=== PATIENT | female | born 1935 | race Caucasian/White ===

== ENCOUNTER 2022-07-03 19:12 | Observation (INO) | payer MEDICARE ==
[~2022-07-03] VITALS: Ht 157.5 cm; Wt 70.0 kg
[2022-07-03] VITALS (11 sets, daily range): BP systolic 130–193; BP diastolic 75–112
[2022-07-03 20:35] LABS: HEMATOCRIT 38.8 % (37.0-47.0); HEMOGLOBIN 12.9 g/dl (12.0-16.0); IMMATURE GRANULOCYTES 0.3 % (0.0-5.0); MEAN CELL VOLUME 95.8 fL CALC (80.0-100.0); MEAN CORPUSCULAR HGB 31.9 pG CALC (26.0-32.0); MEAN CORPUSCULAR HGB CONC 33.2 g/dL CAL (32.0-36.0); NEUT# 1.36 thou/uL (2.00-7.15); RED BLOOD COUNT 4.05 mill/uL (4.20-5.60); RED CELL DISTRI WIDTH 13.4 % (11.5-15.5)
[2022-07-03 20:50] LABS: ALBUMIN 3.8 g/dL (3.2-5.0); ALKALINE PHOSPHATASE 43 u/l (38-126); ANION GAP 10 (6-22 (CALC)); BILIRUBIN, TOTAL 0.7 mg/dL (0.0-1.4); BUN 10 mg/dL (8-23); BUN/CREATININE RATIO 14 (12-20 (CALC)); CARBON DIOXIDE 30 mmol/l (22-30); CHLORIDE 102 mmol/l (95-108); CREATININE 0.8 mg/dL (0.5-1.0); GFR FOR AFR.AMER. > 60 ML/MIN (>=60 (CALC)); GFR OTHER RACES > 60 ML/MIN (>=60 (CALC)); LIPASE 308 u/l (23-300); POTASSIUM 3.6 mmol/l (3.5-5.1); SGOT/AST 30 u/l (9-36); SODIUM 139 mmol/l (137-146); TOTAL PROTEIN 6.2 g/dL (6.3-8.2)
[2022-07-03 20:55] LABS: ACT PARTIAL THROMBO TIME 28.3 SECONDS (20.0-32.5); INTERNATIONAL NORMALIZED RATIO 1.3 RATIO (0.7-1.3); PROTHROMBIN TIME 12.6 SECONDS (9.0-12.5)
[2022-07-03 21:20] LABS: TSH, 3RD GENERATION 1.95 uIU/mL (0.47 - 4.68)
[2022-07-03 23:01] LABS: URINE BILIRUBIN - DIPSTICK NEGATIVE (NEGATIVE); URINE BLOOD DIPSTICK NEGATIVE (NEGATIVE); URINE COLOR YELLOW; URINE GLUCOSE - DIPSTICK NEGATIVE (NEGATIVE); URINE KETONE NEGATIVE (NEGATIVE); URINE LEUK ESTERASE TRACE (NEGATIVE); URINE NITRITE - DIPSTICK POSITIVE (Negative); URINE PROTEIN - DIPSTICK NEGATIVE (NEG-TRACE); URINE UROBILINOGEN - DIPSTICK 0.2 E.U./dL (0.2)
[2022-07-03 23:07] LABS: URINE BACTERIA FEW hpf; URINE RBC 0-2 RBC/hpf (0-5); URINE SQUAMOUS EPITHELIAL CELL FEW EPI/hpf (0-FEW)
[2022-07-04] VITALS (8 sets, daily range): BP systolic 107–165; BP diastolic 60–85
--- NOTE | 2022-07-04 00:47 | NUR ---
PT ARRIVED VIA GRANDDAUGHTER WITH COMPLAINTS OF ABD PAIN, GENERAL WEAKNESS AND TARRY STOOLS SINCE SATURDAY. PT AMBULATED TO STRETCHER, BUT PRESENTS WEAK IN GAIT. PT LINE PLACED, LABS DRAWN AND SENT, MEDS GIVEN. ASSISTED PHYSICIAN WITH RECTAL EXAM. PT TOLERATED ALL WELL, WILL AWAIT RESULTS AND CONTINUE TO MONITOR.
--- NOTE | 2022-07-04 00:51 | NUR ---
PT REPORTS COMPLAINTS OF SUDDEN SEVERE HEADACHE AND ELEVATED BP. PHYSICIAN NOTIFIED AND MEDS GIVEN. PT RESPONDED WELL TO MEDICATIONS. CRITICAL LAB RESULT OF COVID POSITIVE RECIEVED. PT EDUCATION GIVEN.
--- NOTE | 2022-07-04 00:52 | NUR ---
PT TRANSFERRED TO [facility] ASSIGNMENT BY GIOVANNY ESCOBAR. PT IN STABLE CONDITION PRIOR TO DEPARTURE.
--- NOTE | 2022-07-04 01:30 | NUR ---
pt arrived to floor by stretcher a/ox4 no distress noted, bed in low position and callm light in reach
--- NOTE | 2022-07-04 02:33 | NUR ---
PT ARRIVED TO FLOOR BY STRETCHER, PT ALERT AND ORIENTED X3, NO DISTRESS NOTED, PT ADMISSION AND ASSESSMENT COMPLETED, BED IN LOW POSITION AND CALL LIGHT IN REACH
--- NOTE | 2022-07-04 06:40 | NUR ---
RECEIVED REPORT FROM SHANA RICHARDS.
--- NOTE | 2022-07-04 08:30 | NUR ---
PT SITTING ON BED HIGH FOWLERS POSITION; A&O X3. EVEN AND UNLABORED RESPIRATIONS: DIMINISHED LUNG SOUNDS. IV FLUSHED: #20 RIGHT AC, HEALTHY AND PATENT. HYPOACTIVE BOWEL SOUNDS X4 QUADRANTS. SPOKE WITH FAMILY MEMBER ON PHONE: GRANDDAUGHTER WILL BRING MED LIST TODAY. SAFETY PRECAUTIONS IN PLACE WITH CALL LIGHT IN REACH.
[2022-07-04] MEDS ORDERED: CARVEDILOL25 MG PO (09:56)
[2022-07-04] MEDS ORDERED: CITALOPRAM40 M1 (09:58)
[2022-07-04] MEDS ORDERED: HYDROCHLOROT25 MG PO (09:59)
[2022-07-04] MEDS ORDERED: HYDROCO/APAP1 T10 PO (10:01)
[2022-07-04] MEDS ORDERED: LISINOPRIL10 MG PO (10:02)
--- NOTE | 2022-07-04 12:10 | NUR ---
PT IN BED SITTING ON HIGH FOWLERS. NO DISTRESS OR PAIN NOTED. IV SITE HEALTHY AND PATENT INFUSING FLUIDS PER ORDER. PT STATES: "I'M TAKING A NAP AFTER I EAT MY SOUP". NO NEEDS AT THE TIME. SAFETY PRECAUTIONS IN PLACE WITH CALL LIGHT IN REACH.
--- NOTE | 2022-07-04 15:26 | NUR ---
PT C/O LOWER BACK PAIN, LEVEL 9/10; ADMINISTERED PAIN MEDICATION PER EMAR. SAFETY PRECAUTIONS IN PLACE WITH CALL LIGHT IN REACH.
--- NOTE | 2022-07-04 15:48 | NUR ---
PT RESTING ON BED. FAMILY MEMBERS AT BEDSIDE. IV SITE HEALTHY AND PATENT, INFUSING FLUIDS PER ORDER. PLACED LIMB ALERT BRACELET TO LEFT ARM. EDUCATED PT ON USE OF CALL LIGHT; PT SHOWED UNDERSTANDING. PUREWICK IN PLACE. SAFETY PRECAUTIONS IN PLACE WITH CALL LIGHT IN REACH.
--- NOTE | 2022-07-04 21:15 | NUR ---
PATIENT RESTING IN BED. AOX3. NO DISTRESS NOTED. PT C/O LOWER BACK PAIN AND HEADACHE RATED 7/10 ON PAIN SCALE. PATIENT GIVEN TYLENOL FOR PAIN PER EMAR. WARM PADS TO BACK AND PILLOWS USED FOR COMFORT MEASURES. ASSESSMENT COMPLETED. BED ALARM INITIATED. FALL PRECAUTIONS IN PLACE. CALL MOREJON WITHIN REACH.
--- NOTE | 2022-07-04 23:20 | NUR ---
PATIENT C/O LOWER BACK UNRELIEVED BY TYLENOL AND COMFORT MEASURES. NOTIFIED DR. RUDOLPH; RECEIVED ORDERS FOR LIDOCAINE PATCH. PATCH APPLIED TO LOWER BACK.
[2022-07-05 04:25] VITALS: BP 185/93
[2022-07-05 05:43] LABS: HEMOGLOBIN 11.9 g/dl (12.0-16.0); MEAN CORPUSCULAR HGB 32.1 pG CALC (26.0-32.0); MEAN CORPUSCULAR HGB CONC 33.1 g/dL CAL (32.0-36.0); NEUT# 2.07 thou/uL (2.00-7.15); RED BLOOD COUNT 3.71 mill/uL (4.20-5.60); RED CELL DISTRI WIDTH 13.6 % (11.5-15.5)
[2022-07-05 06:43] VITALS: BP 170/88
--- NOTE | 2022-07-05 07:00 | NUR ---
PATIENT ALERT AND ORIENTED X2 WITH PERIODIC CONFUSION. PATIENT STATES THAT SHE HAS ABDOMINAL PAIN AND IS REQUESTING MEDICATION. BED LOCKED IN LOWEST POSITION, CALL LIGHT WITHIN REACH.
[2022-07-05 07:14] LABS: ALBUMIN 3.2 g/dL (3.2-5.0); ALKALINE PHOSPHATASE 43 u/l (38-126); BUN 11 mg/dL (8-23); BUN/CREATININE RATIO 14 (12-20 (CALC)); CHLORIDE 111 mmol/l (95-108); CREATININE 0.8 mg/dL (0.5-1.0); GFR FOR AFR.AMER. > 60 ML/MIN (>=60 (CALC)); GFR OTHER RACES > 60 ML/MIN (>=60 (CALC)); MAGNESIUM 1.7 mg/dL (1.6-2.3); POTASSIUM 3.6 mmol/l (3.5-5.1); SGOT/AST 29 u/l (9-36); SODIUM 138 mmol/l (137-146); TOTAL PROTEIN 5.8 g/dL (6.3-8.2)
[2022-07-05 07:15] LABS: ANION GAP 10 (6-22 (CALC)); CARBON DIOXIDE 21 mmol/l (22-30)
--- NOTE | 2022-07-05 08:38 | NUR ---
CALLED PATIENT'S GRANDDAUGHTER DUE TO PATIENT NOT KNOWING THE KIND OF PACEMAKER SHE HAD PLACED. GRANDDAUGHTER STATED THAT THE CARD SAID [employer].
[2022-07-05 10:45] VITALS: BP 156/47
[2022-07-05] MEDS ORDERED: LIDOCAINE PAIN RE4 % TD (12:14)
[2022-07-05] MEDS ORDERED: ZOFRAN4 MG/TAB PO (12:15)
[2022-07-05] MEDS ORDERED: VANTIN200 M1 PO (12:17)
--- NOTE | 2022-07-05 16:05 | NUR ---
PATIENT ASLEEP BUT AWAKENED UPON ENTERING THE ROOM. ALERT AND ORIENTED, PAIN LEVEL 2/10 AFTER MEDICATION. AWATING ARRIVAL OF GRANDDAUGHTER FOR PICKUP AT DISCHARGE.
== END 2022-07-05 18:10 ==
LOC: ED 19:12 → ED-I 20:37 → ED 23:35 → MS2 23:36
PROVIDERS: Family Medicine; Nurse Practitioner; ADMIT Internal Medicine; ATTEND Internal Medicine
DX: U07.1 COVID-19 (principal); R53.1 Weakness; R11.0 Nausea; N39.0 Urinary tract infection, site not specified; E83.42 Hypomagnesemia; I10 Essential (primary) hypertension; M54.50 Low back pain, unspecified; G89.29 Other chronic pain; B96.20 Unspecified Escherichia coli [E. coli] as the cause of diseases classified elsewhere; Z95.0 Presence of cardiac pacemaker
CPT/HCPCS: G0378; J3475; Q9967; S0164